=== PATIENT | female | born 1985 | race Two or more races ===

== ENCOUNTER 2017-05-22 21:45 | Emergency (ER) | payer OTHER ==
[2017-05-22 21:52] VITALS: O2SAT 99
[2017-05-22] MEDS ORDERED: NS 1,000 ML IV ONE (22:03)
[2017-05-22] MEDS ORDERED: HYDROmorphONE/DILAUDID 1 MG/ML INJ IVP ONE ×2 (22:03→23:23)
[2017-05-22] MEDS ORDERED: ONDANSETRON 4 MG/2 ML VIAL ONE (22:09)
[2017-05-22] MEDS ORDERED: ONDANSETRON 4 MG/2 ML VIAL IVP ONE (22:09)
[2017-05-22 22:12] LABS: COLOR YELLOW; LEUKOCYTE ESTERASE,URINE NEGATIVE (NEGATIVE); NITRITE,URINE NEGATIVE (NEGATIVE)
[2017-05-22 22:14] LABS: % IMMATURE GRANULYOCYTES 0.2 % (0.0-1.1); ABSOLUTE IMMATURE GRANULOCYTES 0.02 10^3/uL (0.00-0.10); ADD DIFF? NO; ADD MORPH? NO; ADD SCAN? NO; ATYPICAL LYMPHOCYTE FLAG 10 (0-99); FRAGMENT RBC FLAG 0 (0-99); HEMATOCRIT 39.3 % (38.0-47.0); HEMOGLOBIN 13.8 g/dL (12.6-16.3); LEFT SHIFT FLG 0 (0-99); LIPEMIA HEMOLYSIS FLAG 90 (0-99); MEAN CELL HEMOGLOBIN 30.5 pg (27.9-34.1); MEAN CELL HEMOGLOBIN CONCENTR. 35.1 g/dL (32.4-36.7); MEAN CELL VOLUME 86.8 fL (81.5-99.8); MEAN PLATELET VOLUME 8.9 fL (8.7-11.7); PLATELET CLUMPS FLAG 10 (0-99); PLATELET COUNT 246 10^3/uL (150-400); RED BLOOD CELL COUNT 4.53 10^6/uL (4.18-5.33); RED CELL DISTRIBUTION WIDTH 12.6 % (11.5-15.2)
[2017-05-22 22:17] LABS: BACTERIA TRACE /hpf (NONE SEEN); MUCUS TRACE /lpf (NONE-1+)
[2017-05-22 22:48] LABS: ALANINE AMINOTRANSFERASE 37 IU/L (9-52); ALBUMIN 4.2 g/dL (3.5-5.0); ALKALINE PHOSPHATASE 78 IU/L (38-126); ANION GAP 10 mEq/L (8-16); ASPARTATE AMINOTRANSFERASE 33 IU/L (14-46); BILIRUBIN,TOTAL 0.7 mg/dL (0.1-1.4); BILIRUBIN-CONJUGATED 0.2 mg/dL (0.0-0.5); BILIRUBIN-UNCONJUGATED 0.5 mg/dL (0.0-1.1); CALCIUM 9.1 mg/dL (8.5-10.4); CARBON DIOXIDE 25 mEq/l (22-31); CHLORIDE 102 mEq/L (97-110); CREATININE 0.7 mg/dL (0.6-1.0); GLOMERULAR FILTRATION RATE > 60; GLUCOSE 95 mg/dL (70-100); POTASSIUM 4.1 mEq/L (3.5-5.2); SODIUM 137 mEq/L (134-144)
[2017-05-22] MEDS ORDERED: IOPAMIDOL (ISOVUE-300) 100 ML BTL ONE (23:43)
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
[2017-05-23] MEDS ORDERED: HYDROCOD/APAP 5/325 PREPACK#6 BTL TAKEHOME ONE (00:22)
[2017-05-23 00:26] VITALS: PULSE 74
[2017-05-23 00:32] VITALS: BP 115/94; RESP 16; TEMP 97.9
== END 2017-05-23 00:32 | disposition home or self-care (01) ==
DX: R10.31 Right lower quadrant pain (principal); E86.9 Volume depletion, unspecified
CPT/HCPCS: 96374; J1170; J2405; Q9967

== ENCOUNTER 2018-03-02 17:47 | Observation (INO) | payer OTHER ==
[2018-03-02] MEDS ORDERED: NS 1,000 ML IV ONE ×2 (19:19→20:38)
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
[2018-03-02 19:36] LABS: PLATELET COUNT 452 10^3/uL (150-400)
[2018-03-02] MEDS ORDERED: ONDANSETRON 4 MG/2 ML VIAL IVP ONE (19:40)
[2018-03-02] MEDS ORDERED: MAG HYDROX/AL HYDROX/SIMETH 30 ML UDCUP PO ONE (20:34)
[2018-03-02] MEDS ORDERED: LIDOCAINE 2% VISCOUS 15 ML UDCUP PO ONE (20:34)
[2018-03-02] MEDS ORDERED: HYDROmorphONE/DILAUDID 2 MG/ML INJ IVP ONE ×2 (20:38→21:51)
[2018-03-02] MEDS ORDERED: PROMETHAZINE HCL 25 MG/ML INJ IVP PRN (22:48)
[2018-03-02] MEDS ORDERED: ONDANSETRON DISINTEGRATING 4 MG TAB PO PRN (22:48)
[2018-03-02] MEDS ORDERED: ACETAMINOPHEN 500 MG TAB PO PRN (22:48)
[2018-03-02] MEDS ORDERED: ONDANSETRON 4 MG/2 ML VIAL IVP PRN (22:48)
[2018-03-02] MEDS ORDERED: oxyCODONE IR 5 MG TAB PO PRN (22:48)
[2018-03-02] MEDS: D5W 1/2 NS 1,000 ML IV SCH (23:42)
[2018-03-03] MEDS: PANTOPRAZOLE SODIUM 40 MG VIAL IVP SCH ×3 (01:13→21:44)
[2018-03-03] MEDS: MAG HYDROX/AL HYDROX/SIMETH 30 ML UDCUP PO PRN ×2 (01:14→08:10)
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
[2018-03-03 07:03] LABS: PLATELET COUNT 294 10^3/uL (150-400)
[2018-03-03] MEDS: D5W 1/2 NS 1,000 ML IV SCH (07:43)
[2018-03-03] MEDS: ENOXAPARIN 40 MG/0.4 ML SYR SC SCH (08:10)
[2018-03-03] MEDS ORDERED: PANTOPRAZOLE SODIUM 40 MG TAB PO SCH (09:00)
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
[2018-03-04] MEDS ORDERED: LIDOCAINE 2% VISCOUS 15 ML UDCUP PO PRN (00:12)
[2018-03-04] MEDS: MAG HYDROX/AL HYDROX/SIMETH 30 ML UDCUP PO PRN (00:21)
[2018-03-04] MEDS: ENOXAPARIN 40 MG/0.4 ML SYR SC SCH (08:32)
[2018-03-04] MEDS: PANTOPRAZOLE SODIUM 40 MG VIAL IVP SCH (08:32)
[2018-03-04] MEDS ORDERED: SUCRALFATE 1 GM/10 ML UDCUP ONE (09:28)
[2018-03-04] MEDS ORDERED: SUCRALFATE 1 GM/10 ML UDCUP PO SCH (11:30)
[2018-03-04 12:06] VITALS: BP 116/74
--- NOTE | 2018-03-04 15:43 | PDIAF ---
- Diagnosis Diagnosis: hip surgery Code Status: Full Code - Medication Management Discharge Medications: Medications to Continue on Transfer Acetaminophen [Tylenol 8 Hour] 650 mg PO Q6H PRN 03/02/18 [Last Taken 02/28/18] Docusate Sodium [Colace 100 MG (*)] 100 mg PO DAILY 03/02/18 [Last Taken ] oxyCODONE IR [Oxycodone Ir (*)] 5 mg PO Q6H PRN 03/02/18 [Last Taken 03/02/18 06 :00] Omeprazole 40 mg PO DAILY #30 capsule. 03/04/18 [Last Taken Unknown] Ondansetron Odt [Zofran Odt 4 mg (*)] 4 mg PO Q4HRS PRN #20 tab 03/04/18 [Last Taken Unknown] Sucralfate 1 gm PO ACHS #120 tablet 03/04/18 [Last Taken Unknown] Discharge Medications: Refer to the Discharge Home Medication list for PRN reason. PICC Care - Routine: N/A - Orders Services needed: Home Care, Physical Therapy, Occupational Therapy Home Care Face to Face: I certify that this patient was under my care and that I had the required [id number] encounter meeting the encounter requirements on the discharge day. My findings support the fact that the patient is homebound as defined in Home Care Face to Face Continued: CMS Chapter 7 Medicare Benefits Manual 30.1.1 , The condition of the patient is such that there exists a normal inability to leave home and consequently, leaving home would require a considerable and taxing effort. Isolation Type: None Diet Recommendation: no restrictions on diet - Follow Up Care Current Providers and Referrals: Gabrielle Love MD [Primary Care Provider] - As per Instructions
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
--- NOTE | 2018-03-04 18:29 | ASMTLACE ---
[facility] Length of stay for Answers: 2 days current admission Acuity / Level of Answers: Yes Care: Did the patient have an inpatient admission? # of Emergency department Answers: 1-2 visits in the last 6 months Score: 6 Date Signed: 03/04/2018 12:26 PM Electronically Signed By:Estela Valencia RN
--- NOTE | 2018-03-04 18:34 | ASMTCMCOM ---
CM Note CM Note Notes: Chart reviewed. Patient has been medically cleared for discharge . She will resume care with [facility] and intake alerted. CM available should other needs arise. Plan: Home with [facility] Date Signed: 03/04/2018 12:45 PM Electronically Signed By:Estela Valencia RN
== END 2018-03-04 12:57 | disposition home or self-care (01) ==
LOC: INTOOBSV 20:43 → F1N 22:13
PROVIDERS: ADMIT Internal Medicine; ATTEND Hospitalist
DX: R10.13 Epigastric pain (principal); E86.9 Volume depletion, unspecified; V89.9XXD Person injured in unspecified vehicle accident, subsequent encounter; Z98.890 Other specified postprocedural states
CPT/HCPCS: 76705; 96361; 96374; 96375; 96376; 97165; 99285; G0378; J1170; J1650; J2405; J2550